=== PATIENT | male | born 1930 | race Caucasian/White ===

== ENCOUNTER 2016-10-21 11:29 | Observation (INO) ==
[2016-10-21] MEDS ORDERED: *HR* Propofol 200 MG/20 ML VIAL IVP ONE (11:43)
[2016-10-21] MEDS ORDERED: *HR* FentaNYL (PF) 100 MCG/2 ML VIAL ONE (11:43)
[2016-10-21] MEDS ORDERED: Lidocaine -MPF 4% 5 ML AMPUL ONE (11:44)
[2016-10-21] MEDS ORDERED: *HR* Succinylcholine 200 MG/10 ML VIAL IVP ONE (11:44)
[2016-10-21] MEDS ORDERED: Lidocaine -MPF 2% 2 ML VIAL ONE (11:44)
[2016-10-21] MEDS ORDERED: CeFAZolin Pre 2,000 MG/100 ML 2,000 MG/100 ML BAG IVPB ONE (12:01)
[2016-10-21] MEDS ORDERED: Albuterol 2.5 MG/3 ML NEBULIZER IH ONE (12:01)
--- NOTE | 2016-10-21 12:01 | History & Physical Report ---
Date of Encounter: 10/21/16 Time of Encounter: 12:01 24 Hour HP Update - Instructions Instructions: If the History and Physical is less than 30 days old and was completed prior to A.M. admission and or procedure and has NOT been updated on calendar day of procedure please complete this update prior to performing procedure. - Update Patient reports changes in Medical Condition: No Changes in examination, assessment, or condition: No Changes in Medication: No Preop tests/diagnostics Reviewed: Yes Pre-Op MRSA Screen: Negative Surgery Remains Indicated: Yes Consent for Planned Operative Procedure(s) Verified: Yes - Pre-Operative Checklist Preoperative Checklist Indicated: No Prophylactic Antibiotic Ordered: Yes Home Medications Include Beta Jose Antonio: Yes Beta Jose Antonio Taken Today (Day of Surgery): No Beta Jose Antonio Taken Yesterday (Day Prior to Surgery): Yes Is VTE Prophylaxis Indicated?: Yes
[2016-10-21] MEDS ORDERED: Plasma-Lyte A (PH 7.4) 1,000 ML IVC SCH (12:15)
--- NOTE | 2016-10-21 12:34 | Anesthesia Evaluation PreOp ---
Date of Encounter: 10/21/16 Time of Encounter: 12:26 - Past History Planned Operation: L1 Kyphoplasty Cardiac History: WI ("silent WI" 1987), HTN, Hyperlipidemia Other Medical History: Renal (Stage III CKD) Alcohol Use: none Drug use: none Medications and Allergies Aspirin [Lo-Dose Aspirin EC] 81 mg PO DAILY 10/21/16 [History] Carvedilol [Coreg] 25 mg PO BID 10/21/16 [History] Docusate [Colace] 100 mg PO DAILY PRN 10/21/16 [History] Lisinopril [Zestril] 20 mg PO DAILY 10/21/16 [History] Loratadine [Claritin] 10 mg PO DAILY 10/21/16 [History] OxyCODONE/APAP 5/325 [Percocet 5/325 MG] 1 - 2 tab PO Q8H PRN 10/21/16 [History] Rosuvastatin Calcium [Crestor] 5 mg PO HS 10/21/16 [History] Tamsulosin [Flomax] 0.4 mg PO DAILY 10/21/16 [History] 3 Allergy/AdvReac Type Severity Reaction Status Date / Time atorvastatin [From Lipitor] AdvReac muscle Verified 10/21/16 11:54 tightness simvastatin [From Zocor] AdvReac muscle Verified 10/21/16 11:54 tightness Anesthesia Results - Imaging EKG: image reviewed (73bpm SR w/ SA, Anteroseptal WI, ??P:robably recent) Anes Supervising Prov Stmt: CASE CANCELLED. PT HAS EKG DATED 10/20/2016 DEMONSTRATING CONCERNING INTERVAL EKG CHANGES. AND NOTING ANTEROSEPTAL INFARCTION PROABLY RECENT/ACUTE WI. CARDIOLOGY CURBSIDED AND AGREES THAT CHANGES ARE CONCERNING ESPECIALLY COMPARED TO EKG DATED 06/2016. DR. JJ MADE AWARE/AGREES TO CANCEL CASE. HOSPITALIST CONTACTED AND PLANS TO WORK UP PATIENT AND INVESTIGATE CARDIAC CHANGES. Porfirio RAMIREZ MD
--- NOTE | 2016-10-21 14:03 | Internal Medicine Consult Note ---
<Cheli Vargas - Last Filed: 10/21/16 14:05> Date of Encounter: 10/21/16 Time of Encounter: 13:00 - Assessment and Plan (1) EKG abnormalities Current Visit: Yes Status: Acute Assessment and plan: 1 patient had preop EKG concerning for changes in anterior septal leads. Patient does have cardiac history however has not had cardiac workup recently. We will place patient on case monitor. We will obtain stat EKG as well as troponins 2 we will consult cardiology-up with Dr. Gamez who will see patient 3 we will obtain cardiac echo 4 we will continue with patient's aspirin and statin and beta sukhdev. (2) Hypertension Current Visit: No Status: Chronic Assessment and plan: 1 continue with lisinopril as well as Coreg Qualifiers: Hypertension type: essential hypertension Qualified Code(s): I10 - Essential (primary) hypertension (3) Chronic kidney disease (CKD), stage III (moderate) Current Visit: No Status: Chronic Assessment and plan: 1 . Is only creatinine is 1.33 appears baseline is 1.5-1.7. We will continue to monitor creatinine 2 avoid nephrotoxins (4) Tobacco abuse Current Visit: Yes Status: Acute Assessment and plan: Patient smokes three quarters of a pack a day. Encourage patient to stop smoking nicotine patch as needed Internal Medicine - CN: HPI - Data of Consult Patient: new to practice Requesting Physician: Evin Pisano Jr MD - Consult Narrative Reason for consult: EKG changes History of present illness: Mr. Geronimo is a 86 year old male past medical hx hypertension coronary artery disease abdominal aneurysm C daily 3 present smoker. According to patient he did sustain a fall approximately ago and sustained a compression fracture of L1. He was to undergo a kyphoplasty today however pre-op EKG dated 10/20/2016 demonstrated concerning EKG changes. I did speak with Anesthesiologist Dr. Snider who is at bedside, we did review EKG she stated she had cardiology curbside who agree changes were concerning. Dr. Snider did speak with Dr. Pisano who agreed to cancel case. Hospitalist Consulted for further workup and evaluation cardiac changes. Presently the patient denies any chest pain or shortness of breath. He states he had a cardiac catheterization approximately 10 years ago with no cardiac stents. He did have an angiogram 10 years ago where he required stents and his femoral arteries, this was completed at all, at [facility] he states he did have a "silent" RI in 1997. I cannot find any previous EKGs or echoes. Ordered stat EKG as well as troponins. We will consult cardiology. Upon assessment patient is alert and appropriate oriented 3. Heart sounds are regular S1 and S2 with no rubs clicks gallops murmurs noted. Lungs sounds are clear abdomen soft nontender no pedal edema. Patient appears to be hemodynamically stable at this time. I reviewed this case with Dr. Fletcher who agrees with plan C Past Med Surg Social Fam HX - Past Medical History Medical history: aortic aneurysm, hyperlipidemia, hypertension, myocardial infarction, renal disease Psychiatric history: no psych history - Social History Smoking Status: Current every day smoker Smokeless Tobacco Status: No Alcohol use: none Drug use: none - Family History Brother Living Status: Cause of : RI - Constitutional Constitutional: weight loss - Musculoskeletal Musculoskeletal ROS IM: back pain Internal Medicine - CN: Meds Aspirin [Lo-Dose Aspirin EC] 81 mg PO DAILY 10/21/16 [History] Carvedilol [Coreg] 25 mg PO BID 10/21/16 [History] Docusate [Colace] 100 mg PO DAILY PRN 10/21/16 [History] Lisinopril [Zestril] 20 mg PO DAILY 10/21/16 [History] Loratadine [Claritin] 10 mg PO DAILY 10/21/16 [History] OxyCODONE/APAP 5/325 [Percocet 5/325 MG] 1 - 2 tab PO Q8H PRN 10/21/16 [History] Rosuvastatin Calcium [Crestor] 5 mg PO HS 10/21/16 [History] Tamsulosin [Flomax] 0.4 mg PO DAILY 10/21/16 [History] 3 Allergy/AdvReac Type Severity Reaction Status Date / Time atorvastatin [From Lipitor] AdvReac muscle Verified 10/21/16 11:54 tightness simvastatin [From Zocor] AdvReac muscle Verified 10/21/16 11:54 tightness Internal Medicine - CN: Exam - Constitutional Vitals: Temp Pulse Resp BP Pulse Ox 98.1 F 75 18 147/73 96 10/21/16 12:11 10/21/16 12:11 10/21/16 12:11 10/21/16 12:11 10/21/16 12:11 General appearance IM: Present: cooperative, A&O X 3, answers questions appropriately - Head Head exam: Present: atraumatic - Neck Neck exam general surgery: Present: full ROM - Respiratory Respiratory exam: Present: CTAB - Cardiovascular Cardiovascular exam IM: Present: RRR, +S1, +S2 - GI/Abdominal GI/Abdominal exam IM: Present: soft - Back Exam Back exam: Present: tenderness - Neurological Exam Neurological exam: Present: CN II-XII intact, oriented X3 - Psychiatric Psychiatric exam: Present: normal mood - Skin Skin exam IM: Present: dry Internal Medicine - CN: Reslt - Labs Labs: Lab work drawn 10/20/2016 Chemistries sodium 135, potassium 4.8 chloride 97 bicarbonate 28 BUN 24 crit 1.33 glucose 1:15 PT 12.6 INR 1.2 APTT 29.2 CBC WBC 8.3 hemoglobin 15.6 hematocrit 47.1 platelets 173 - EKG Data EKG shows normal: sinus rhythm - EKG Data Prior EKG available for review: no Interpretation IM: suggestive of ischemia Consult Discharge Plan - Plan Referrals: Maynor Huang DO [Primary Care Provider] - <Evin Fletcher - Last Filed: 10/21/16 17:40> Date of Encounter: 10/21/16 Internal Medicine - CN: HPI - Data of Consult Requesting Physician: Evin Pisano Jr MD - Consult Narrative History of present illness: Mr. Geronimo is a 86 year old male Past Med Surg Social Fam HX - Family History Brother Living Status: Cause of : RI Hx Family Cardiac Disorders: Yes Father Living Status: Hx Family Cardiac Disorders: Yes Hx Family Endocrine Disorder: Yes Internal Medicine - CN: Exam - Constitutional Vitals: Temp Pulse Resp BP Pulse Ox 97.5 F L 71 18 170/75 97 10/21/16 16:45 10/21/16 16:45 10/21/16 16:45 10/21/16 16:45 10/21/16 16:45 Internal Medicine - CN: Reslt - Labs Labs: Cardiac Enzymes 10/21/16 Range/Units 14:16 Troponin I 0.01 (0-0.03) ng/mL - Attending Attestation I personally evaluated this pt, examined and reviewed all labs/studies. I agree with the findings, assessment and plan of ELLIOT Vargas. Cardiology input appreciated. Awaiting echo, continue current rx.
--- NOTE | 2016-10-21 15:45 | Cardiology Consult Note ---
Date of Encounter: 10/21/16 Time of Encounter: 15:39 Assessment and Plan (1) Pre-operative cardiovascular examination Current Visit: Yes Status: Acute Consulted for abnormal EKG--Q waves in anterior leads. Troponin negative x 1. Planned to undergo kyphoplasty for compression fracture of L1. Pt reports silent ID in 1997. Reports having a LHC at [facility] 10 years ago with mention of collaterals and scar tissue at the bottom of the LV, per pt. Denies stent placement. Also reports stress test 5-6 years ago at [facility]. Denies exertional chest pain. Risk factors for CAD include HTN, HLD, Tobacco abuse, known PAD. Recommend echo to evaluate structure and function. If echo is without significant abnormality, then recommend proceeding with stress test in AM. If echo is abnormal, then will need to discuss LHC. Pt is already on ASA, Statin, BB, MELODIE-i. Further recommendations to follow. (2) EKG abnormalities Current Visit: Yes Status: Acute As above. (3) Tobacco abuse Current Visit: Yes Status: Acute Smoking cessation counseling given. 1PPD x 60 years. Discussion w patient/family: The assessment and plan as outlined above was discussed with the patient and/or family members who expressed understanding and agreement. All questions were answered. Thank you for involving us in the care of your patient. Please call with any questions. I will discuss all the above with Dr. Maynor Gamez and make changes as necessary. History of Present Illness Consult date: 10/21/16 Requesting physician: Cheli Vargas Consult reason: pre-op, abnormal EKG Chief complaint: back pain History of present illness: Mr. Geronimo is a 86 year old male with PMH of HTN, HLD, presumed CAD, abdominal aneurysm, PAD with femoral stenting, tobacco abuse that presented today to undergo kyphoplasty due to a compression fracture of L1 sustained from a fall 1 month ago. Anesthesiologist was concerned about pt's EKG. Cardiology consulted for further recommendations. Anterior Q waves noted. I discussed history with pt. He states he had a cardiac catheterization approximately 10 years ago with no cardiac stents, but reports something was mentioned about collaterals and scarring. Reports he had a stress test 5-6 years ago. Prior testing was done at [facility]. He states he did have a "silent" ID in 1997. Troponin is negative. No prior EKG for comparison. Pt reports prior to L1 fx he was ambulatory and has never experienced chest pain on exertion. He also denies any significant dyspnea or any worsening from his baseline. Past Med Surg Social Fam HX - Past Medical History Medical history: aortic aneurysm, hyperlipidemia, hypertension, myocardial infarction, renal disease Psychiatric history: no psych history - Social History Smoking Status: Current every day smoker Smokeless Tobacco Status: No Alcohol use: none Drug use: none - Family History Brother Living Status: Cause of : ID Medications and Allergies Aspirin [Lo-Dose Aspirin EC] 81 mg PO DAILY 10/21/16 [History] Carvedilol [Coreg] 25 mg PO BID 10/21/16 [History] Docusate [Colace] 100 mg PO DAILY PRN 10/21/16 [History] Lisinopril [Zestril] 20 mg PO DAILY 10/21/16 [History] Loratadine [Claritin] 10 mg PO DAILY 10/21/16 [History] OxyCODONE/APAP 5/325 [Percocet 5/325 MG] 1 - 2 tab PO Q8H PRN 10/21/16 [History] Rosuvastatin Calcium [Crestor] 5 mg PO HS 10/21/16 [History] Tamsulosin [Flomax] 0.4 mg PO DAILY 10/21/16 [History] 3 Allergy/AdvReac Type Severity Reaction Status Date / Time atorvastatin [From Lipitor] AdvReac muscle Verified 10/21/16 11:54 tightness simvastatin [From Zocor] AdvReac muscle Verified 10/21/16 11:54 tightness All Systems Review: A 10-system review of systems was performed and is negative for pertinent findings except as documented above in the HPI. - Cardiovascular Cardiovascular: dyspnea on exertion - Musculoskeletal Musculoskeletal: back pain Physical Examination Vital Signs, Last 4 Hours Temp Pulse Resp BP Pulse Ox 10/21/16 12:11 98.1 F 75 18 147/73 96 Vital Signs Temp Pulse Resp BP Pulse Ox 10/21/16 12:11 98.1 F 75 18 147/73 96 Intake and Output 10/20/16 10/21/16 10/21/16 23:59 07:59 15:59 Other: Weight 72.575 kg Patient Weight 10/21/16 23:59 Weight 72.575 kg General: Conversant, No Apparent Distress HEENT: Atraumatic, Normocephaly, Mucus Membranes Moist Neck: No JVD, Normal carotid pulses Cardiac: Reg Rate and Rhythm, Normal S1 and S2, No Murmur Lungs: Other (coarse) Neuro: Alert and responsive, No focal deficits noted Abdomen: Soft, Non-Tender Skin: No rashes noted on visualized skin Musculoskeletal: No Chest Wall Tenderness Extremities: No Clubbing, No Cyanosis, No Edema, Normal Pulses Results Lab Results 10/21/16 14:16 Troponin I 0.01 Cardiac Enzymes 10/21/16 Range/Units 14:16 Troponin I 0.01 (0-0.03) ng/mL Active Medications Aspirin (Aspirin Ec) 81 mg PO DAILY WAYNE Stop: 04/23/17 09:01 Atorvastatin Calcium (Lipitor) 5 mg PO HS WAYNE Stop: 04/22/17 21:01 Carvedilol (Coreg) 25 mg PO BID [facility] PRN Reason: Protocol Stop: 04/22/17 21:01 Parenteral Electrolytes (Plasma-Lyte A (Ph 7.4)) 1,000 mls @ 25 mls/hr IVC .Q24H WAYNE Stop: 04/22/17 12:16 Last Admin: 10/21/16 12:21 Dose: 25 mls/hr Lisinopril (Zestril) 20 mg PO DAILY [facility] PRN Reason: Protocol Stop: 04/23/17 09:01 Tamsulosin HCl (Flomax) 0.4 mg PO DAILY [facility] PRN Reason: Protocol Stop: 04/23/17 09:01 - EKG Interpretation EKG results cardiology: personally reviewed (SR, Q waves anterior leads, anteroseptal ID) Consult Discharge Plan - Plan Referrals: Maynor Huang DO [Primary Care Provider] -
[2016-10-21] MEDS ORDERED: Ondansetron 4 MG/2 ML VIAL IVP PRN (18:31)
[2016-10-22 07:37] VITALS: BP 153/80
--- NOTE | 2016-10-22 08:29 | Internal Med Progress Note ---
Date of Encounter: 10/22/16 Time of Encounter: 08:29 - Assessment and plan (1) EKG abnormalities Current Visit: Yes Status: Acute Assessment and plan: Patient was planned to undergo kyphoplasty per Dr. Pisano on 10/21/16; however , EKG on 10/20/16 revealed concerning EKG changes. Patient continues to deny chest pain, and reports only shortness of breath with exertion (100 ft x 2 to mailbox). Prior history of [facility] about 10 years ago at [facility], reportedly a "silent" ID in 1997. EKG revealed Q-waves in anterior leads. Troponin was 0.01, 0.01, 0.01 Patient has known risk factors for CAD including htn, hld, tobacco abuse, and PAD. Echo 10/21/16 was sub-optimal. Revealed normal LV chamber size, wall thickness , and function. Mild LV diastolic dysfunction, normla RV, and unable to estimate RVSP due to lack of TR jet. Majority of the LV segments not well visualized, but mid to apical septal segments did appear hypokinetic and EF is at least moderately reduced. -Cardio on board. -Continue aspirin, statin, carvedilol, and lisinopril -Nuclear Stress test planned for later today. (2) Hypertension Current Visit: Yes Status: Chronic Assessment and plan: Known history of htn, bp currently 133-153/68-80, rate 71-73. Is mildly elevated from goal. -Continue monitoring vitals -Continue lisinopril and Carvedilol Qualifiers: Hypertension type: essential hypertension Qualified Code(s): I10 - Essential (primary) hypertension (3) Chronic kidney disease (CKD), stage III (moderate) Current Visit: Yes Status: Chronic Assessment and plan: Known history of CKD stage III at baseline Cr 1.33 on 10/20/16, baseline is about 1.5. (4) Tobacco abuse Current Visit: Yes Status: Acute Assessment and plan: Known history of tobacco abuse, currently smoking 3/4 ppd, not wanting nicotine patch. - Subjective Interval history: Mr. Geronimo reports doing okay overnight, no complaints of chest pain, shortness of breath. Denies fevers, chills, sweats, nausea, vomiting, dysphagia, chest pain, shortness of breath, abdominal pain, changes in urination, or loss of sensation. Reports shortness of breath with exertion after walking about 100feet x 2 back from the mailbox at home. This has been baseline for over a year according to the patient. Patient denies ever having chest pain or pressure with this exertion. Patient has been describing some chronic conditions he has been experiencing over the past month including significant decreased weight and muscle loss, occassional nausea, decreased appetite, food not tasting good, and constipation with difficult bowel movements. Reports that about 1 month ago he has been having chronic back pain secondary to L1 compression fracture and has been on Percocets ad aleve daily for pain management. Patient reports that he has lost about 17 Lbs over the past month and also muscle loss. He also reports occassional nausea particularly after eating, no heartburn, decreased appetite wanting to eat, and decreased amount of food, but no early satiety, and reports food that doesn't taste good makes him nauseous and he just can't find it in him to swallow it. Patient otherwise denies dysphagia. He also reports that for the past month he has been having bowel movements only every 5 days and that last night when he had a bowel movement he had to use his fingers to decrease the caliber and it took him about 1 hour to finally feel decently relieved. He denies hematemesis, melena, or hematochezia. He previously was on colace, 2 tabs daily, but last took it about 4 days ago. Currently smokes 3/4 ppd, not interested in quitting, and doesn't want nicotine patch. - Constitutional Vitals: Temp Pulse Resp BP Pulse Ox 98.3 F 71 16 153/80 94 10/22/16 07:36 10/22/16 07:36 10/22/16 07:36 10/22/16 07:36 10/22/16 07:36 General appearance: Present: cooperative, A&O X 3, pleasant, no acute distress, answers questions appropriately - Head Head exam: Present: atraumatic, normal inspection, normocephalic - Eye Eye exam: Present: EOMI, normal appearance - ENT ENT exam: Present: mucous membranes moist, normal exam, normal oropharynx - Neck Neck exam general surgery: Present: full ROM, normal inspection, supple, trachea midline. Absent: tenderness - Respiratory Respiratory exam: Present: CTAB, wheezes (mild expiratory wheezing). Absent: rales, respiratory distress, rhonchi, tachypnea - Cardiovascular Cardiovascular exam: Present: RRR, +S1, +S2. Absent: diastolic murmur, JVD, systolic murmur - GI/Abdominal GI/Abdominal exam: Present: normal bowel sounds, soft. Absent: distended, guarding, tenderness - Extremities Exam Extremities exam: Present: full ROM, normal inspection, warm, radial pulses palpable and symmetrical. Absent: pedal edema, tenderness - Back Exam Back exam: Present: normal inspection, tenderness, vertebral tenderness - Neurological Exam Neurological exam: Present: alert, oriented X3, no focal deficits, strengths equal and symetr throughout. Absent: facial droop, speech deficit - Psychiatric Psychiatric exam: Present: normal affect, normal mood. Absent: depressed, flat affect - Skin Skin exam: Present: dry, intact, normal color, warm. Absent: rash Internal Medicine: Result - Labs Labs: Cardiac Enzymes 10/21/16 10/21/16 10/22/16 Range/Units 14:16 19:59 01:59 Troponin I 0.01 0.01 0.01 (0-0.03) ng/mL - VTE Documentation of Mechanical Device: Graduated compression elastic hosiery Consult Discharge Plan - Plan Referrals: Maynor Huang DO [Primary Care Provider] -
[2016-10-22] MEDS ORDERED: Lisinopril 20 MG TABLET PO SCH (09:00)
[2016-10-22] MEDS ORDERED: Aspirin Enteric Coated 81 MG Tablet PO SCH (09:00)
[2016-10-22] MEDS ORDERED: Regadenoson 0.4 MG/5 ML SYRINGE IVP ONE (10:30)
--- NOTE | 2016-10-22 12:36 | Nuclear Medicine Stress Report ---
Regadenoson Nuclear Stress Name: Viraj Geronimo Date of Study: 10/22/2016 Date: 1930 Ht: 72.0 in Medical Record#: [id number] Age: 86 Wt: 157.0 lb Gender: Male Order #: [id number] Location: [facility] Room: [facility] Supervising Provider: Nasra Hayes CNP Reading Physician: Leo Bentley DO, FACC, [facility] Ordering Physician: Danyel Moreno CNP Stress Technologist: Kirt Morataya, [employer], CPFT [employer]: Nova Tripathi Indications: Abnormal ECG, Pre-operative Impression: Pharmacologic stress ECG is non-diagnostic for ischemia due to baseline ST- T changes. Gated EF = 36%. Large sized, fixed severe reduction to absent perfusion defect involving the mid anterior, mid anteroseptal, all apical segments, and apex. Small sized, primarily fixed moderate reduction in perfusion involving the inferior segments. Findings consistent with extensive infarct(s). Minimal paradise-infarct ischemia involving the mid anterior and inferior segments. History: Hypertension Hypercholesteremia History of Smoking Stress Test Summary: Stress Test Type: Pharmacologic Regadenoson 0.4mg/5ml given IV Baseline Information: Initial Heart Rate: 82 Blood Pressure: 104/68 Stress Information: Stress Time: 4 min 00 sec Test Terminated Due to (primary): As per protocol Maximum Blood Pressure: 100/62 Maximum Heart Rate: 86 Percent Maximum Heart Rate Achieved: 65 Double Product: 8600 METS Reached: 1 Symptoms: Shortness of breath Nuclear Summary: SPECT myocardial perfusion imaging using Tc99m Sestamibi given intravenously was performed at rest and following cardiac stress testing. The resting images were obtained following initial dose of 10.2 mCi. Following stress an additional dose of 35.3 mCi was given at peak exercise or 30 seconds post regadenoson infusion. Medication Given: Time Medication Dose Units Route Findings: Stress Note * Resting ECG demonstrated normal sinus rhythm, poor R wave progression, and ST-T changes. * Rare PACs noted prior to exam beginning. * Pharmacologic stress ECG is non-diagnostic for ischemia due to baseline ST- T changes. * Rare PACs noted during stress. * Normal hemodynamic responses to pharmacologic stress. Study Quality * Study quality was fair. Gated EF % * Gated EF = 36%. Left Ventricle * The left ventricle is dilated. * LVEDV = 147 mL. Anterior Perfusion Rest * Severe reduction to absent perfusion involving the mid anterior, anteroseptal, all apical segments, and apex. Anterior Perfusion Stress * Severe reduction to absent perfusion involving the mid anterior, anteroseptal, all apical segments, and apex. TID * No evidence of transient ischemic dilatation. * TID ratio = 1.18. Lung Uptake * There is no evidence of increase lung uptake. Inferior Perfusion Rest * The inferior segment shows a moderate reduction in perfusion. Inferior Perfusion Stress * The inferior segment shows a moderate reduction in perfusion. Updated by Leo Bentley DO, FACC, ANTONIO, FASJOSE ALFREDO on 10/22/2016 12:26:42 PM electronically signed on 10/22/2016 12:28:53 PM with status of Final
--- NOTE | 2016-10-22 13:53 | Cardiology Progress Note ---
Date of Encounter: 10/22/16 Time of Encounter: 13:49 Assessment and Plan (1) Pre-operative cardiovascular examination Current Visit: Yes Status: Acute Consulted for abnormal EKG--Q waves in anterior leads. Troponin negative x 3. Planned to undergo kyphoplasty for compression fracture of L1. Pt reports silent PA in 1997. Reports having a LHC at [facility] 10 years ago with mention of collaterals and scar tissue at the bottom of the LV, per pt. Denies stent placement. Also reports stress test 5-6 years ago at [facility]. Denies exertional chest pain. Risk factors for CAD include HTN, HLD, Tobacco abuse, known PAD. Echo resulted--technically suboptimal due to poor echocardiographic windows. Majority of LV segments not well visualized. In views obtained, mild to apical septal segments appeared hypokinetic. Overall EF appears at least mildly reduced. Mild LVDD. Stress test resulted: Gated EF 36%. Large sized, fixed severe reduction to absent perfusion defect involving mid anterior, mid anteroseptal, all apical segments and apex. Findings consistent with extensive infarcts. Small sized predominantly fixed moderate reduction in perfusion involving inferior segments. Minimal paradise infarct ischemia involving mid anterior and inferior segments. No high risk findings of ischemia on stress test. He is asymptomatic. No further cardiac testing is warranted. Given gated EF of 36% on stress with extensive infarct and minimal paradise infarct ischemia, pt would be moderate risk for spine surgery from a cardiac standpoint. Pt is already on ASA, Statin, BB, MELODIE-i. Cardiology signing off. Reconsult PRN. (2) EKG abnormalities Current Visit: Yes Status: Acute As above. (3) Tobacco abuse Current Visit: Yes Status: Acute Smoking cessation counseling given. 1PPD x 60 years. (4) Cardiomyopathy Current Visit: Yes Status: Acute Presumed ischemic of unclear chronicity. Gated EF 36% on stress. Euvolemic on exam. Echo EF appeared at least moderately reduced. Continue BB and MELODIE-i. Qualifiers: Cardiomyopathy type: unspecified Qualified Code(s): I42.9 - Cardiomyopathy , unspecified (5) CAD (coronary artery disease) Current Visit: Yes Status: Chronic Stress test with extensive prior infarct. ASA, Statin, BB. Minimal paradise-infarct ischemia. Pt denies chest pain, troponins negative x 3. Qualifiers: Coronary Disease-Associated Artery/Lesion type: [place] artery [place] vs. transplanted heart: [place] heart Associated angina: without angina Qualified Code(s): I25.10 - Atherosclerotic heart disease of [place] coronary artery without angina pectoris Discussion w patient/family: The assessment and plan as outlined above was discussed with the patient and/or family members who expressed understanding and agreement. All questions were answered. Thank you for involving us in the care of your patient. Please call with any questions. I will discuss all the above with Dr. Maynor Gamez and make changes as necessary. Subjective Principal diagnosis: L1 fx, abnormal EKG Interval history: Pt denies chest pain or dyspnea. Echo resulted--technically suboptimal due to poor echocardiographic windows. Majority of LV segments not well visualized. In views obtained, mild to apical septal segments appeared hypokinetic. Overall EF appears at least mildly reduced. Mild LVDD. Stress test resulted: Gated EF 36%. Large sized, fixed severe reduction to absent perfusion defect involving mid anterior, mid anteroseptal, all apical segments and apex. Findings consistent with extensive infarcts. Small sized predominantly fixed moderate reduction in perfusion involving inferior segments. Minimal paradise infarct ischemia involving mid anterior and inferior segments. Objective Vital Signs Temp Pulse Resp BP Pulse Ox 10/22/16 07:36 98.3 F 71 16 153/80 94 10/22/16 04:16 98.1 F 73 17 133/68 96 10/22/16 00:08 98.2 F 74 17 133/73 94 10/21/16 16:45 97.5 F L 71 18 170/75 97 Intake and Output 10/21/16 10/22/16 10/22/16 23:59 07:59 15:59 Intake Total 0 / 0 Output Total 0 / 0 250 / 250 Balance 0 / 0 -250 / -250 Intake: Oral 0 / 0 Output: Urine 0 / 0 250 / 250 Other: # Voids 1 1 # Bowel Movements 1 Weight 73.3 kg Patient Weight 10/22/16 23:59 Weight 73.3 kg General: Conversant, No Apparent Distress HEENT: Atraumatic, Normocephaly, Mucus Membranes Moist Neck: No JVD, Normal carotid pulses Cardiac: Reg Rate and Rhythm, Normal S1 and S2, No Murmur Lungs: Normal Breath Sounds, No Wheeze, Rales, Rhonchi Neuro: Alert and responsive, No focal deficits noted Abdomen: Soft, Non-Tender Skin: No rashes noted on visualized skin Musculoskeletal: No Chest Wall Tenderness Extremities: No Clubbing, No Cyanosis, No Edema, Normal Pulses Results Lab Results 10/21/16 10/21/16 10/22/16 14:16 19:59 01:59 Troponin I 0.01 0.01 0.01 Cardiac Enzymes 10/22/16 10/21/16 10/21/16 Range/Units 01:59 19:59 14:16 Troponin I 0.01 0.01 0.01 (0-0.03) ng/mL Active Medications Aspirin (Aspirin Ec) 81 mg PO DAILY [facility] Stop: 04/23/17 09:01 Carvedilol (Coreg) 25 mg PO BID [facility] PRN Reason: Protocol Stop: 04/22/17 21:01 Last Admin: 10/21/16 21:49 Dose: 25 mg Parenteral Electrolytes (Plasma-Lyte A (Ph 7.4)) 1,000 mls @ 25 mls/hr IVC .Q24H [facility] Stop: 04/22/17 12:16 Last Admin: 10/21/16 12:21 Dose: 25 mls/hr Lisinopril (Zestril) 20 mg PO DAILY [facility] PRN Reason: Protocol Stop: 04/23/17 09:01 Ondansetron HCl (Zofran) 4 mg IVP Q6HR PRN; Protocol PRN Reason: Nausea And Vomiting Stop: 04/22/17 18:32 Senna/Docusate Sodium (Senna Plus) 1 each PO BID [facility] PRN Reason: Protocol Stop: 04/23/17 21:01 Tamsulosin HCl (Flomax) 0.4 mg PO DAILY [facility] PRN Reason: Protocol Stop: 04/23/17 09:01 - Imaging and Cardiology Stress Test: report reviewed Echo: report reviewed - VTE Documentation of Mechanical Device: Graduated compression elastic hosiery Consult Discharge Plan - Plan Referrals: Maynor Huang DO [Primary Care Provider] -
--- NOTE | 2016-10-22 14:58 | Discharge Summary ---
Date of Encounter: 10/22/16 Time of Encounter: 14:56 - Discharge Diagnosis (1) Compression fracture Priority: Primary Status: Acute Comments: Prefers not to have a kyphoplasty at this point (2) Hypertension Priority: Secondary Status: Chronic Qualifiers: Hypertension type: essential hypertension Qualified Code(s): I10 - Essential (primary) hypertension (3) Chronic kidney disease (CKD), stage III (moderate) Priority: Secondary Status: Chronic (4) Tobacco abuse Priority: Secondary Status: Acute (5) CAD (coronary artery disease) Priority: Secondary Status: Chronic Qualifiers: Coronary Disease-Associated Artery/Lesion type: [place] artery [place] vs. transplanted heart: [place] heart Associated angina: without angina Qualified Code(s): I25.10 - Atherosclerotic heart disease of [place] coronary artery without angina pectoris (6) Cardiomyopathy Priority: Secondary Status: Acute Qualifiers: Cardiomyopathy type: unspecified Qualified Code(s): I42.9 - Cardiomyopathy , unspecified - Discharge Medications Home Medications: Aspirin [Lo-Dose Aspirin EC] 81 mg PO DAILY 10/21/16 [History] Carvedilol [Coreg] 25 mg PO BID 10/21/16 [History] Lisinopril [Zestril] 20 mg PO DAILY 10/21/16 [History] Loratadine [Claritin] 10 mg PO DAILY 10/21/16 [History] OxyCODONE/APAP 5/325 [Percocet 5/325 MG] 1 - 2 tab PO Q8H PRN 10/21/16 [History] Rosuvastatin Calcium [Crestor] 5 mg PO HS 10/21/16 [History] Tamsulosin [Flomax] 0.4 mg PO DAILY 10/21/16 [History] Docusate [Colace] 100 mg PO BID PRN #0 10/22/16 [Rx] Allergies/Adverse Reactions: 3 Allergy/AdvReac Type Severity Reaction Status Date / Time atorvastatin [From Lipitor] AdvReac muscle Verified 10/21/16 11:54 tightness simvastatin [From Zocor] AdvReac muscle Verified 10/21/16 11:54 tightness Procedures/tests Complete & Pending: Procedures Performed prior 72 hours Category Date Time Status NM chase perf SPECT multi [NM] Routine Exams 10/22/16 09:10 Taken EKG [ECG 12 lead ECG] [ECG] Stat Y 10/21/16 14:03 Completed EV echocardiogram Routine Y 10/21/16 13:38 Completed SP pharm nuclear stress Routine Y 10/22/16 09:09 Completed Date of admission: 10/21/16 16:28 Primary care physician: Maynor Huang DO Consults: 10/21/16 13:41 Consult to Cardiology [CONS] Routine Comment: Consulting Provider: Cardiology Mary Reason for Consult: EKG changes Time Notified: 13:41 Call Completed: No 10/21/16 14:26 Consult to Hospitalist [CONS] Stat Consulting Provider: Hospitalist Amado Reason for Consult: Acute [place] Time Notified: 14:27 Call Completed: Yes 10/21/16 17:09 Consult to Nutrition [CONS] Routine Comment: Consulting Provider: NUTRITION Reason for Dietary Consult: MST Score 10/22/16 10:36 Consult to Occupational Therapy [CONS] Routine Comment: Evaluate, develop and implement POC Reason for Consult: evaluate and treat Consult to Physical Therapy [CONS] Routine Comment: Evaluate, develop and implement POC Reason for Consult: evaluate and treat - Patient Status Disposition: Home, Self-Care Condition: Good Overall status at discharge: patient is back to baseline - Discharge Instructions Follow Up With: Maynor Huang DO [Primary Care Provider] - Additional Instructions: Follow-up with primary care physician within the next 7 days. Workup recommended to include malignancy testing due to weight loss. Follow-up with Dr. Pisano when necessary. - Diet and Activity Activity: increase activity as tolerated Diet: low fat, low cholesterol Hospital course: Mr. Geronimo is a 86 year old male past medical hx of hypertension, coronary artery disease , abdominal aneurysm, chronic kidney disease of stage III, CAD, PAD with femoral stenting, smoker, compression fracture of L1 after a fall a month ago. The patient did sustain a fall approximately ago and sustained a compression fracture of L1. He was to undergo a kyphoplasty however a pre-op EKG dated 12/2016 demonstrated concerning EKG changes. His Anesthesiologist Dr. Snider did review the EKG and stated she contacted cardiology who agreed changes were concerning. Dr. Snider did speak with Dr. Pisano who agreed to cancel case. Hospitalist was Consulted for further workup and evaluation cardiac changes. The patient denied any chest pain or shortness of breath. He stated he had a cardiac catheterization approximately 10 years ago with no cardiac stents. He did have an angiogram 10 years ago where he required stents and his femoral arteries, this was completed at all, at [facility] he states he did have a "silent" [place] in 1997. Risk factors for CAD included HTN, HLD, Tobacco abuse, known PAD. Echo resulted--technically suboptimal due to poor echocardiographic windows. Majority of LV segments not well visualized. In views obtained, mild to apical septal segments appeared hypokinetic. Overall EF appears at least mildly reduced. Mild LVDD. Stress test resulted: Gated EF 36%. Large sized, fixed severe reduction to absent perfusion defect involving mid anterior, mid anteroseptal, all apical segments and apex. Findings consistent with extensive infarcts. Small sized predominantly fixed moderate reduction in perfusion involving inferior segments. Minimal paradise infarct ischemia involving mid anterior and inferior segments. No high risk findings of ischemia on stress test. He is asymptomatic. No further cardiac testing is warranted. Given gated EF of 36% on stress with extensive infarct and minimal paradise infarct ischemia, pt would be moderate risk for spine surgery from a cardiac standpoint. Pt is already on ASA, Statin, BB, MELODIE-i. Cardiology signed off. The patient mentions that he is not complaining of much pain at the moment and prefers not to have a kyphoplasty. He was given the option to reschedule the procedure but he prefers to go home and follow-up as an outpatient. He mentioned also he has lost 17 pounds in the past 35 days, was offered to have workup but again, he prefers to follow up with his physician as an outpatient. Mentions that he had a colonoscopy about a month ago that he not have any positive findings. Time spent discussing smoking cessation with patient: 3 to 10 minutes - Time Spent with Patient Total time spent providing and/or coordinating discharge services: Greater than 30 minutes (40 min) - Constitutional Vitals: Temp Pulse Resp BP Pulse Ox 98.3 F 71 16 153/80 94 10/22/16 07:36 10/22/16 07:36 10/22/16 07:36 10/22/16 07:36 10/22/16 07:36 General appearance: Present: cooperative, A&O X 3, pleasant, no acute distress, answers questions appropriately - Head Head exam: Present: atraumatic, normocephalic - Eye Eye exam: Present: PERRL, conjuntiva pink, sclera anicteric Pupils: Present: PERRL - Neck Neck exam general surgery: Present: supple, trachea midline. Absent: lymphadenopathy - Respiratory Respiratory exam: Present: CTAB. Absent: accessory muscle use, rales, rhonchi, wheezes - Cardiovascular Cardiovascular exam: Present: RRR, +S1, +S2. Absent: diastolic murmur, gallop, rubs, systolic murmur - GI/Abdominal GI/Abdominal exam: Present: normal bowel sounds, soft, no peritoneal signs. Absent: distended, tenderness - Extremities Exam Extremities exam: Present: warm, radial pulses palpable and symmetrical. Absent : calf tenderness, cyanotic, pedal edema - Neurological Exam Neurological exam: Present: CN II-XII intact, oriented X3, no focal deficits. Absent: pronater drift, facial droop, speech deficit - Skin Skin exam: Present: dry, intact - VTE Documentation of Mechanical Device: Graduated compression elastic hosiery
--- NOTE | 2016-10-22 16:07 | Electrocardiograph Report ---
[address] [place] [address] Test Date: 2016-10-21 Pat Name: Viraj Geronimo Department: 115 Room: [facility] Gender: M [employer]: [employer] [facility] : 1930 Requested By: Cheli Vargas Order Number: [id number] Reading MD: Allen Donovan MD Measurements Intervals [place] Rate: 80 P: 71 MT: 145 QRS: 28 QRSD: 94 T: 102 QT: 374 QTc: 410 Interpretive Statements SINUS RHYTHM WITH OCCASIONAL SUPRAVENTRICULAR PREMATURE COMPLEXES LOW QRS VOLTAGE IN PRECORDIAL LEADS PROBABLE INFERIOR MYOCARDIAL INFARCTION, PROBABLY OLD ANTEROSEPTAL MYOCARDIAL INFARCTION, OF INDETERMINATE AGE Electronically Signed On 10-22-2016 16:05:40 EDT by Allen Donovan MD
[2016-10-22] MEDS ORDERED: Sennosides/Docusate Sodium TABLET PO SCH (21:00)
== END 2016-10-22 15:45 | disposition home or self-care (01) ==
LOC: 3NENU 11:29 → SAMDAY 11:29
PROVIDERS: ADMIT Orthopaedic Surgery Orthopaedic Surgery of the Spine; ATTEND Orthopaedic Surgery Orthopaedic Surgery of the Spine